=== PATIENT | female | born 1995 | race Caucasian/White ===

== ENCOUNTER → 2017-03-22 | Outpatient (CLI) | payer OTHER ==
[~2017-03-22] MED LIST: ABILIFY15 MG PO; ABILIFY5 MG PO; ADDERALL XR30 MG PO; ADDERALL30 MG PO; BUSPAR10 MG PO; LUVOX50 MG PO; MACRODANTIN50 MG PO; OXYBUTYNIN CHLOR5 MG PO; TRAZODONE HCL100 MG PO
== END | disposition home or self-care (01) ==
LOC: NUC 03-18 08:30
DX: R93.3 Abnormal findings on diagnostic imaging of other parts of digestive tract (principal)
CPT/HCPCS: 78264; A9541

== ENCOUNTER 2017-10-26 21:57 | Emergency (ER) | payer OTHER ==
[~2017-10-26] VITALS: Ht 154.9 cm; Wt 69.7 kg
[2017-10-27 00:55] LABS: HEMOGLOBIN 13.5 G/DL (11.9-15.5); MCH 30.8 PG (29.0-34.0); MCHC 34.6 G/DL (30.0-36.0); MCV 88.8 FL (83-99); PLATELET COUNT 211 K/uL (156-360); RBC DIS.WIDTH-CV 13.2 % (11.8-14.6); RBC DIS.WIDTH-SD 43.3 % (39-53); RED BLOOD COUNT 4.39 M/uL (3.80-5.20); WHITE BLOOD COUNT 9.4 K/uL (4.1-10.2)
[2017-10-27 01:33] LABS: QUANTITATIVE HCG < 4.0 MIU/ML
[2017-10-27 01:46] LABS: ALBUMIN 4.2 G/DL (3.2-4.8); ALKALINE PHOSPHATASE 57 IU/L (3-129); ALT (GPT) 11 IU/L (3-49); AST (GOT) 14 IU/L (2-34); CHLORIDE 104 MEQ/L (99-109); CREATININE 0.6 MG/DL (0.6-1.3); GFR ESTIMATE (CALCULATED) > 59 mL/min/; GLUCOSE 92 mg/dL (70-99); POTASSIUM 3.8 MEQ/L (3.7-5.4); SODIUM 139 MEQ/L (136-147); TOTAL BILIRUBIN 0.6 MG/DL (0.0-1.0); TOTAL PROTEIN 6.9 G/DL (6.4-8.3); UREA NITROGEN (BUN) 14 mg/dL (9-23)
[2017-10-27 01:48] LABS: APPEARANCE CLOUDY ((CLEAR)); BILIRUBIN NEGATIVE; BLOOD MODERATE; COLOR AMBER ((YELLOW)); GLUCOSE (STRIP) NEGATIVE; KETONES NEGATIVE; LEUKOCYTES MODERATE; NITRITE POSITIVE; PROTEIN (STRIP) 100; SPECIFIC GRAVITY 1.033 (1.000-1.030); UROBILINOGEN 0.2 MG/DL (0.2-1.0)
[2017-10-27 01:59] LABS: LIPASE 45 U/L (1.0-51.0)
[2017-10-27] MEDS ORDERED: MACROBID100 MG PO (03:12)
[2017-10-27 03:19] VITALS: BP 125/78
[2017-10-27 04:24] LABS: RED BLOOD CELLS 0-5 /HPF (0-5); WHITE BLOOD CELLS 15-20 /HPF (0-5)
[2017-10-27 04:25] LABS: BACTERIA 4+ /HPF; CALCIUM OXALATE CRYSTALS 1+ /HPF; EPITHELIAL CELLS 1+ /HPF; UCUL ADDED? YES
[2017-10-27 04:31] LABS: MUCUS RARE /LPF
== END 2017-10-27 03:30 | disposition home or self-care (01) ==
LOC: EME 21:57
PROVIDERS: Emergency Medicine
DX: R55 Syncope and collapse (principal); N30.01 Acute cystitis with hematuria; E86.0 Dehydration
CPT/HCPCS: 80053; 81003; 83690; 84702; 85027; 87086; 87651 90; 99281; 99284; J7030

== ENCOUNTER 2017-10-29 17:35 | Emergency (ER) | payer OTHER ==
[~2017-10-29] VITALS: Ht 160 cm; Wt 69.8 kg
[~2017-10-29 17:35] MED LIST changes: +MACROBID100 MG PO
[2017-10-29 18:34] LABS: HEMATOCRIT 40.2 % (36.0-46.0); HEMOGLOBIN 14.1 G/DL (11.9-15.5); MCH 30.7 PG (29.0-34.0); MCHC 35.1 G/DL (30.0-36.0); MCV 87.6 FL (83-99); PLATELET COUNT 249 K/uL (156-360); RBC DIS.WIDTH-CV 12.9 % (11.8-14.6); RBC DIS.WIDTH-SD 41.2 % (39-53); RED BLOOD COUNT 4.59 M/uL (3.80-5.20); WHITE BLOOD COUNT 7.9 K/uL (4.1-10.2)
[2017-10-29 18:57] LABS: ALBUMIN 4.5 g/dL (3.2-4.8); CHLORIDE 106 mEq/L (99-109); POTASSIUM 4.2 mEq/L (3.7-5.4); SODIUM 138 mEq/L (136-147)
[2017-10-29 19:00] LABS: APPEARANCE SL.HAZY ((CLEAR)); BILIRUBIN NEGATIVE; BLOOD SMALL; COLOR YELLOW ((YELLOW)); GLUCOSE (STRIP) NEGATIVE; KETONES NEGATIVE; LEUKOCYTES MODERATE; NITRITE NEGATIVE; PROTEIN (STRIP) NEGATIVE; SPECIFIC GRAVITY 1.026 (1.000-1.030); UROBILINOGEN 0.2 MG/DL (0.2-1.0)
[2017-10-29 19:00] LABS: GLUCOSE 88 mg/dL (70-99); TOTAL PROTEIN 8.1 g/dL (6.4-8.3)
[2017-10-29 19:01] LABS: TOTAL BILIRUBIN 0.4 mg/dL (0.0-1.0)
[2017-10-29 19:03] LABS: ALKALINE PHOSPHATASE 78 IU/L (3-129); CREATININE 0.7 mg/dL (0.6-1.3); GFR ESTIMATE (CALCULATED) > 59 mL/min/
[2017-10-29 19:04] LABS: UREA NITROGEN (BUN) 13 mg/dL (9-23)
[2017-10-29 19:05] LABS: AST (GOT) 15 IU/L (2-34)
[2017-10-29 19:06] LABS: ALT (GPT) 17 IU/L (3-49)
[2017-10-29 19:06] LABS: BACTERIA RARE /HPF; EPITHELIAL CELLS 1+ /HPF; MUCUS TRACE /LPF; RED BLOOD CELLS 0-5 /HPF (0-5); UCUL ADDED? YES
[2017-10-29 19:14] LABS: QUANTITATIVE HCG < 4.0 MIU/ML
[2017-10-30] MEDS ORDERED: AFRIN,GENASAL D15 ML BOTH NARES (00:37)
[2017-10-30] MEDS ORDERED: MECLIZINE HCL25 MG PO (00:37)
[2017-10-30] MEDS ORDERED: AUGMENTIN875 MG PO (00:37)
[2017-10-30 01:00] VITALS: BP 128/88
== END 2017-10-30 01:36 | disposition home or self-care (01) ==
LOC: EME 17:35
PROVIDERS: Physician Assistant
DX: R42 Dizziness and giddiness (principal); N83.202 Unspecified ovarian cyst, left side; H66.93 Otitis media, unspecified, bilateral; F42.9 Obsessive-compulsive disorder, unspecified; F90.9 Attention-deficit hyperactivity disorder, unspecified type; Z87.440 Personal history of urinary (tract) infections
CPT/HCPCS: 71046; 76857; 80053; 81003; 84702; 85027; 85379; 87086; 87502; 99281; 99285; J7030

== ENCOUNTER 2017-11-18 21:52 | Inpatient (IN) | payer OTHER ==
[~2017-11-18] VITALS: Ht 157.5 cm; Wt 70.0 kg
[~2017-11-18 21:52] MED LIST changes: +ABILIFY2 MG PO; -ABILIFY5 MG PO; +AFRIN,GENASAL D15 ML BOTH NARES; +AUGMENTIN875 MG PO; +FOCALIN XR30 MG PO; +FOCALIN10 MG PO; +INTUNIV4 MG PO; +LAMICTAL200 MG PO; +MECLIZINE HCL25 MG PO; +MELATONIN3 MG PO; +MOTION SICKNESS25 M4 PO; +PROZAC10 MG PO; -TRAZODONE HCL100 MG PO; +TRAZODONE HCL50 MG PO; +VITAMIN D400 UNIT PO
[2017-11-19 11:49] VITALS: BP 117/66
[2017-11-19] MEDS ORDERED: TROSPIUM CHLORI20 MG PO (13:08)
[2017-11-19 16:24] VITALS: BP 141/66
[2017-11-19 20:02] LABS: HEMATOCRIT 38.9 % (36.0-46.0); HEMOGLOBIN 13.2 G/DL (11.9-15.5); MCHC 33.9 G/DL (30.0-36.0); MCV 88.4 FL (83-99); PLATELET COUNT 222 K/uL (156-360); RBC DIS.WIDTH-CV 12.4 % (11.8-14.6); RBC DIS.WIDTH-SD 40.1 % (39-53); WHITE BLOOD COUNT 10.2 K/uL (4.1-10.2)
[2017-11-19 20:11] VITALS: BP 131/79
[2017-11-19 20:33] LABS: CHLORIDE 104 MEQ/L (99-109); CREATININE 0.7 MG/DL (0.6-1.3); GFR ESTIMATE (CALCULATED) > 59 mL/min/; POTASSIUM 3.7 MEQ/L (3.7-5.4); SODIUM 135 MEQ/L (136-147); UREA NITROGEN (BUN) 7 mg/dL (9-23)
[2017-11-19 20:40] LABS: GLUCOSE 444 mg/dL (70-99)
[2017-11-19 23:40] VITALS: BP 138/73
[2017-11-20 03:35] VITALS: BP 136/72
[2017-11-20 07:27] VITALS: BP 126/68
[2017-11-20 08:20] LABS: HEMATOCRIT 38.5 % (36.0-46.0); HEMOGLOBIN 13.5 G/DL (11.9-15.5); MCHC 35.1 G/DL (30.0-36.0); MCV 88.5 FL (83-99); PLATELET COUNT 239 K/uL (156-360); RBC DIS.WIDTH-CV 12.6 % (11.8-14.6); RED BLOOD COUNT 4.35 M/uL (3.80-5.20); WHITE BLOOD COUNT 13.7 K/uL (4.1-10.2)
[2017-11-20] MEDS ORDERED: TRAMADOL HCL50 MG PO (08:44)
[2017-11-20 08:45] LABS: CHLORIDE 104 MEQ/L (99-109); CREATININE 0.6 MG/DL (0.6-1.3); GFR ESTIMATE (CALCULATED) > 59 mL/min/; POTASSIUM 3.7 MEQ/L (3.7-5.4); SODIUM 135 MEQ/L (136-147); UREA NITROGEN (BUN) 4 mg/dL (9-23)
[2017-11-20 08:52] LABS: GLUCOSE 125 mg/dL (70-99)
[2017-11-20 11:51] VITALS: BP 124/61
[2017-11-20 16:46] VITALS: BP 125/74
[2017-11-20 20:10] VITALS: BP 137/85
[2017-11-20 23:54] VITALS: BP 135/82
[2017-11-21 03:35] VITALS: BP 133/80
[2017-11-21 07:27] VITALS: BP 125/77
[2017-11-21 07:27] LABS: HEMATOCRIT 39.5 % (36.0-46.0); HEMOGLOBIN 13.5 G/DL (11.9-15.5); MCH 30.9 PG (29.0-34.0); MCHC 34.2 G/DL (30.0-36.0); MCV 90.4 FL (83-99); NRBC (%) 0.5 /100 WBC (0-0); PLATELET COUNT 196 K/uL (156-360); RBC DIS.WIDTH-CV 13.1 % (11.8-14.6); RBC DIS.WIDTH-SD 42.5 % (39-53); RED BLOOD COUNT 4.37 M/uL (3.80-5.20); WHITE BLOOD COUNT 11.3 K/uL (4.1-10.2)
[2017-11-21 07:58] LABS: CHLORIDE 105 MEQ/L (99-109); CREATININE 0.6 MG/DL (0.6-1.3); GFR ESTIMATE (CALCULATED) > 59 mL/min/; SODIUM 137 MEQ/L (136-147); UREA NITROGEN (BUN) 7 mg/dL (9-23)
[2017-11-21 08:00] LABS: GLUCOSE 87 mg/dL (70-99)
== END 2017-11-21 10:55 | disposition home or self-care (01) | DRG 743 ==
LOC: SDC → ENRESERV 21:52 → 2SOUTH 11-19 10:27 → EDSTATUS 11-19 11:39 → 2SOUTH 11-19 11:40 → ENRESERV 11-19 13:17 → SDC 11-19 16:03 → 2EAST 11-19 16:05
PROVIDERS: Obstetrics & Gynecology Gynecologic Oncology
DX: N80.1 Endometriosis of ovary (principal); N13.5 Crossing vessel and stricture of ureter without hydronephrosis; N80.5 Endometriosis of intestine; E78.5 Hyperlipidemia, unspecified; Z87.74 Personal history of (corrected) congenital malformations of heart and circulatory system
CPT/HCPCS: 36415; 80048; 81025; 82948; 85027; 86850; 86900; 86901; 86920; 88305; 94799; J0131; J0690; J1100; J1170; J1650; J2250; J2405; J2710; J2795; J3010; J7643